=== PATIENT | female | born 2000 | race Caucasian/White ===

== ENCOUNTER 2022-09-16 17:44 | Observation (INO) | payer OTHER ==
[~2022-09-16] VITALS: Ht 165.1 cm; Wt 56.2 kg
[2022-09-16] MEDS ORDERED: bupropion HCl XL 300 (18:19)
[2022-09-16 18:58] LABS: Albumin, Blood 3.9 g/dL (3.4-5.0); Albumin/Globulin Ratio 1.3 (0.8-1.8); Bilirubin, Total 0.3 mg/dL (0.1-1.0); Bun/Creatinine Ratio 12.4 (12.0-20.0); Calcium, Blood 9.3 mg/dL (8.5-10.1); Creatinine, Blood 0.89 mg/dL (0.40-1.00); Globulin, Blood 3.1 g/dL (2.2-4.0); Potassium, Blood 4.3 mmol/L (3.5-5.5)
[2022-09-16 19:17] LABS: Source, Urine Clean Catch
[2022-09-16 19:20] LABS: Hematocrit 36.7 % (33.0-51.0); Hemoglobin 12.5 g/dL (11.5-16.0); Mean Corpuscular HGB Conc 34.1 g/dL (31.5-36.5); Mean Corpuscular Volume 88 fL (80-100); Mean Platelet Volume 10.1 fL (9.1-12.4); Platelet Count 370 K/mm3 (150-400); RDW Coefficient Variation 11.9 % (11.7-14.2); RDW Standard Deviation 38.6 fL (35.1-46.3); Red Blood Cell Count 4.16 M/mm3 (3.80-5.20); White Blood Cell Count 11.23 K/mm3 (4.00-11.30)
[2022-09-16 20:16] LABS: BASOPHILS ABSOLUTE MAN 0.22 K/mm3 (0.00-0.23); BASOPHILS PERCENT MAN 2 % (0-2); EOSINOPHILS ABSOLUTE MAN 4.26 K/mm3 (0.00-0.68); EOSINOPHILS PERCENT MAN 38 % (0-6); LYMPHOCYTES PERCENT MAN 17 % (21-46); MONOCYTES ABSOLUTE MAN 0.33 K/mm3 (0.16-1.47); MONOCYTES PERCENT MAN 3 % (4-13); NEUTROPHILS ABSOLUTE MAN 4.49 K/mm3 (1.96-9.15); SEG NEUTROPHILS PERCENT MAN 40 % (41-73); TOTAL CELLS COUNTED 100
[2022-09-16 20:20] LABS: Appearance, Urine Hazy (Clear); Bilirubin, Urine Neg (Neg); Blood, Urine Neg (Neg); Color, Urine Yellow (P-Yellow); Glucose Qualitative, Urine Neg (Neg); Ketones, Urine Neg (Neg); Leukocyte Esterase, Urine 3+ (Neg); Nitrite, Urine Pos (Neg); Protein, Urine Neg (Neg); Urobilinogen, Urine NORM (Normal)
[2022-09-16 20:30] LABS: Bacteria Many /hpf; Mucus Light (0-Heavy); Red Blood Cells, Urine 0-2 /hpf (0-2); Squamous Epithelial Cells Few /hpf (Few)
--- NOTE | 2022-09-17 09:20 | NUR ---
PT ARRIVED TO THE ROOM ACCOMPANIED BY JESSICA (FATHER) AT APPROXIMATELY 0920. AT TIME OF ARRIVAL PT WAS ALERT AND ORIENTED. SHE DENIED PAIN AND NAUSEA. PT A&OX4 AND INDEPENDENT.
[2022-09-17] MEDS ORDERED: Prozac40 MG PO (09:34)
[2022-09-17] MEDS ORDERED: Budeprion Xl300 MG PO (09:34)
--- NOTE | 2022-09-17 11:51 | NUR ---
09/17/22 1151 Eduardo Chaudhari SCHEDULED UNASYN STARTED IN PREOP AT 1109
[2022-09-17] MEDS ORDERED: HYDR1TAB94 PO (15:08)
--- NOTE | 2022-09-17 17:55 | NUR ---
LOW BLOOD PRESSURE PT'S BLOOD PRESSURE CONTINUES TO REMAIN LOW. ORTHOSTATIC VS COMPLETED. LYING 93/63 HR OF 69 SITTING 101/67 HR OF 96 STANDING 89/61 HR OF 97 PT REPORTED FEELING DIZZY UPON STANDING, SHE REPORTS SHE IS LESS DIZZY THAN EARLIER TODAY. DR. BECK NOTIFIED AND 1L BOLUS OF LR ORDERED. PLAN TO CONTINUE WITH DISCHARGE WHEN BP IMPROVES.
[2022-09-17] MEDS ORDERED: CEPH500 PO (18:09)
--- NOTE | 2022-09-17 18:35 | NUR ---
SHIFT SUMMARY PT IS POD#[address] BECK. PT IS TOLERATING PO, ABLE TO VOID, ABLE TO PASS FLATUS AND ABLE TO AMBULATE. WHEN PT HAS BEEN OOB SHE HAS REPORTED DIZZINESS AND HAS BEEN UNSTEADY ON HER FEET, ORTHOSTATIC BP LOW (SEE NOTE). FLUID BOLUS TO BE COMPLETED PRIOR TO DISCHARGE. PT AND HER FATHER WERE PROVIDED WITH WRITTEN AND VERBAL DISCHARGE INSTRUCTIONS; THEY REPORTED UNDERSTANDING. PLAN FOR DISCHARGE AFTER FLUID BOLUS IS COMPLETE. PT'S DAD OBTAINED PT'S PRESCRIPTIONS. WILL MONITOR UNTIL DISCHARGE OR REPORT TO NOC RN.
--- NOTE | 2022-09-17 19:35 | NUR ---
PT INDEP TO RESTROOM. LARGE VOID CLEAR YELLOW. BARRETT REG DIET FOR DINNER. REPORTS MILD SORENESS TO LAP SITES ON ABD X3 CDI. PT REQUESTING TO DISCHARGE HOME AND DECLINES TO FINISH FLUID BOLUS. VSS AND PT REPORTS NO DIZZYNESS WHEN OOB. IV DC'D. DISCHARGE INSTRUCTIONS COMPLETED BY DAY SHIFT RN. PT GETTING DRESSED AND GATHERING ALL PERSONAL BELONGINGS. PT FATHER AT BEDSIDE TO TAKE PT HOME.
== END 2022-09-17 19:43 | disposition home or self-care (01) ==
LOC: ER 17:44 → ERHOLD 17:45 → SURS 17:45
PROVIDERS: Student in an Organized Health Care Education/Training Program; ADMIT Surgery
PROC: 0DTJ4ZZ Resection of Appendix, Percutaneous Endoscopic Approach (ICD-10-PCS; principal; 2022-09-17 11:00)
DX: K35.80 Unspecified acute appendicitis (principal); N39.0 Urinary tract infection, site not specified
CPT/HCPCS: 36415; 74177; 80053; 81001; 81025; 83690; 85025; 87077; 87086; 87186; A9270; G0378; J0295; J1100; J1885; J2250; J2405; J2704; J2795; J3010; J7120; Q9967

== ENCOUNTER → 2023-03-15 | Outpatient (CLI) | payer OTHER ==
[~2023-03-15] MED LIST: Budeprion Xl300 MG PO; CEPH500 PO; HYDR1TAB94 PO; Prozac40 MG PO; bupropion HCl XL 300
[2023-03-15 16:55] LABS: BASOPHILS ABSOLUTE AUTO 0.07 K/mm3 (0.00-0.23); BASOPHILS PERCENT AUTO 1 % (0-2); EOSINOPHILS ABSOLUTE AUTO 0.56 K/mm3 (0.00-0.68); EOSINOPHILS PERCENT AUTO 7 % (0-6); IMMATURE GRAN ABSOLUTE AUTO 0.02 K/mm3 (0.00-0.10); IMMATURE GRAN PERCENT AUTO 0 % (0-1); LYMPHOCYTES ABSOLUTE AUTO 2.28 K/mm3 (0.84-5.20); LYMPHOCYTES PERCENT AUTO 29 % (21-46); MONOCYTES ABSOLUTE AUTO 0.76 K/mm3 (0.16-1.47); MONOCYTES PERCENT AUTO 10 % (4-13); Mean Corpuscular HGB 30.5 pg (26.0-34.0); Mean Corpuscular HGB Conc 34.3 g/dL (31.5-36.5); Mean Corpuscular Volume 89 fL (80-100); NEUTROPHILS ABSOLUTE AUTO 4.11 K/mm3 (1.96-9.15); NEUTROPHILS PERCENT AUTO 53 % (41-73); Platelet Count 433 K/mm3 (150-400); RDW Coefficient Variation 11.8 % (11.7-14.2); Red Blood Cell Count 3.94 M/mm3 (3.80-5.20)
[2023-03-15 17:47] LABS: Albumin, Blood 3.9 g/dL (3.4-5.0); Albumin/Globulin Ratio 1.3 (0.8-1.8); Bilirubin, Total 0.5 mg/dL (0.1-1.0); Bun/Creatinine Ratio 12.6 (12.0-20.0); Calcium, Blood 9.1 mg/dL (8.5-10.1); Creatinine, Blood 0.87 mg/dL (0.40-1.00); Globulin, Blood 3.1 g/dL (2.2-4.0); Potassium, Blood 3.9 mmol/L (3.5-5.5)
== END | disposition home or self-care (01) ==
LOC: LAB 15:32 → LAB SHORT 15:32
PROVIDERS: Family Medicine
DX: R58 Hemorrhage, not elsewhere classified (principal)
CPT/HCPCS: 80053; 85025

== ENCOUNTER 2024-06-29 15:57 | Emergency (ER) | payer OTHER ==
[2024-06-29 17:41] LABS: BASOPHILS ABSOLUTE AUTO 0.06 K/mm3 (0.00-0.23); BASOPHILS PERCENT AUTO 1 % (0-2); EOSINOPHILS ABSOLUTE AUTO 0.21 K/mm3 (0.00-0.68); EOSINOPHILS PERCENT AUTO 2 % (0-6); Hematocrit 38.9 % (33.0-51.0); Hemoglobin 13.3 g/dL (11.5-16.0); IMMATURE GRAN ABSOLUTE AUTO 0.08 K/mm3 (0.00-0.10); IMMATURE GRAN PERCENT AUTO 1 % (0-1); LYMPHOCYTES ABSOLUTE AUTO 2.12 K/mm3 (0.84-5.20); LYMPHOCYTES PERCENT AUTO 20 % (21-46); MONOCYTES ABSOLUTE AUTO 0.85 K/mm3 (0.16-1.47); MONOCYTES PERCENT AUTO 8 % (4-13); Mean Corpuscular HGB 29.4 pg (26.0-34.0); Mean Corpuscular HGB Conc 34.2 g/dL (31.5-36.5); Mean Corpuscular Volume 86 fL (80-100); Mean Platelet Volume 10.1 fL (9.1-12.4); NEUTROPHILS ABSOLUTE AUTO 7.35 K/mm3 (1.96-9.15); NEUTROPHILS PERCENT AUTO 69 % (41-73); Platelet Count 431 K/mm3 (150-400); RDW Coefficient Variation 11.6 % (11.7-14.2); RDW Standard Deviation 35.9 fL (35.1-46.3); Red Blood Cell Count 4.53 M/mm3 (3.80-5.20); White Blood Cell Count 10.67 K/mm3 (4.00-11.30)
[2024-06-29 18:01] LABS: Albumin/Globulin Ratio 1.1 (0.8-1.8); Bilirubin, Total 0.4 mg/dL (0.1-1.0); Bun/Creatinine Ratio 15.6 (12.0-20.0); Calcium, Blood 9.4 mg/dL (8.5-10.1); Creatinine, Blood 0.64 mg/dL (0.40-1.00); Globulin, Blood 3.7 g/dL (2.2-4.0); Total Protein, Blood 7.7 g/dL (6.4-8.2)
[2024-06-29 19:37] LABS: Source, Urine Clean Catch
[2024-06-29 19:42] LABS: Appearance, Urine Clear (Clear); Bilirubin, Urine Neg (Neg); Blood, Urine Neg (Neg); Glucose Qualitative, Urine Neg (Neg); Ketones, Urine Neg (Neg); Leukocyte Esterase, Urine 1+ (Neg); Nitrite, Urine Pos (Neg); Protein, Urine Neg (Neg); Specific Gravity, Urine 1.005 (1.003-1.022); Urobilinogen, Urine NORM (Normal)
[2024-06-29 19:46] LABS: Color, Urine Pale Yellow (P-Yellow)
[2024-06-29 19:49] LABS: Bacteria Many /hpf; Red Blood Cells, Urine 0-2 /hpf (0-2); Squamous Epithelial Cells Few /hpf (Few)
[2024-06-29] MEDS ORDERED: Nitrofurantoin/Nitrofuran Mac 100 MG Cap PO ONE (20:05)
[2024-06-29] MEDS ORDERED: NITR100CA PO (20:08)
[2024-06-29 20:17] VITALS: BP 101/74
== END 2024-06-29 20:25 | disposition home or self-care (01) ==
LOC: ER 15:57
PROVIDERS: Physician Assistant
DX: N83.202 Unspecified ovarian cyst, left side (principal); N39.0 Urinary tract infection, site not specified; Z79.899 Other long term (current) drug therapy; Z91.040 Latex allergy status; Z91.018 Allergy to other foods
CPT/HCPCS: 76856; 80053; 81001; 81025; 85025; 87077; 87086; 87186; 99284-25; A9270

== ENCOUNTER → 2024-08-15 | Outpatient (CLI) | payer OTHER ==
[~2024-08-15] MED LIST changes: +NITR100CA PO
== END ==
LOC: LAB SHORT 17:16 → LAB 17:16
DX: R82.90 Unspecified abnormal findings in urine (principal)
CPT/HCPCS: 87086

== ENCOUNTER 2024-10-30 10:08 | Day surgery (SDC) | payer OTHER ==
[2024-10-30] VITALS (10 sets, daily range): BP systolic 101–124; BP diastolic 54–80
[~2024-10-30] VITALS: Ht 165.1 cm; Wt 71.8 kg
[~2024-10-30 10:08] MED LIST changes: +ESGIC 50-325-41 EACH PO; +KELNOR 1-35 281 EACH PO; +TOPI100 PO
[2024-10-30] MEDS ORDERED: Lactated Ringer's 1,000 ML IV SCH (10:20)
[2024-10-30] MEDS ORDERED: CeFAZolin Sodium 2,000 MG in NS 100 ML IV SCH (10:20)
--- NOTE | 2024-10-30 10:25 | NUR ---
Ambulatory in Day Surgery Patient confirms NPO status and agrees with scheduled surgery. Pre-Op teaching done. Pt verbalizes understanding. History, Chart, Medications and Allergies reviewed before start of procedure. Patient reports completing Chlorhexadine shower X2 prior to admission to hospital.
[2024-10-30] MEDS ORDERED: KELNOR 1-35 281 EACH PO (10:42)
[2024-10-30] MEDS ORDERED: CeFAZolin Sodium 2,000 MG VIAL ONE (11:03)
[2024-10-30] MEDS ORDERED: Midazolam HCl 1MG / ML 2ML Vial ONE ×2 (11:27→13:42)
[2024-10-30] MEDS ORDERED: Midazolam HCl 1MG / ML 2ML Vial IV SCH (11:30)
[2024-10-30] MEDS ORDERED: Bupivacaine 0.5% HCl 5 MG/ML 30MLVIAL ONE (11:44)
[2024-10-30] MEDS ORDERED: FentaNYL Citrate 50 MCG/ML 2 ML Injection ONE ×3 (12:07→13:56)
[2024-10-30] MEDS ORDERED: propofoL 20 ML IV ONE (12:07)
[2024-10-30] MEDS ORDERED: Ketorolac Tromethamine 30mg Vial ONE (12:15)
[2024-10-30] MEDS ORDERED: Dexamethasone Sod Phos 10 MG/ML 1ML VIAL ONE (12:15)
[2024-10-30] MEDS ORDERED: Ondansetron HCl 2 MG / ML 2ML Vial ONE (12:15)
[2024-10-30] MEDS ORDERED: Phenylephrine HCl 100 MCG/ML-NS 10MLSYR (1MG/10ML) ONE (12:15)
[2024-10-30] MEDS ORDERED: Sugammadex Sodium 200 MG/2ML SDV (100 MG/ML) ONE (13:20)
[2024-10-30] MEDS ORDERED: OxyCODONE 5 mg/Acetamin 325 mg TABLET PO PRN (14:15)
--- NOTE | 2024-10-30 15:18 | NUR ---
Discharge instructions reviewed with patient. Patient verbalizes understanding. Copy given to patient to take home. Prescriptions already picked up. Up to bathroom to void. Moderate bleeding. Ice pack provided. Patient States Post-Procedure ride home has been arranged. Discharged via wheelchair to private car for ride home.
== END 2024-10-30 15:30 | disposition home or self-care (01) ==
LOC: ORSCMMR 10:08 → ORD 11:30 → ORSCMMR 11:30 → ORD 11:45 → ORSCMMR 15:30
PROVIDERS: Obstetrics & Gynecology
PROC: 0U5F4ZZ Destruction of Cul-de-sac, Percutaneous Endoscopic Approach (ICD-10-PCS; principal; 2024-10-30 11:30)
DX: R10.2 Pelvic and perineal pain (principal); N94.6 Dysmenorrhea, unspecified; N83.202 Unspecified ovarian cyst, left side; N80.329 Endometriosis of the posterior cul-de-sac, unspecified depth; Z79.899 Other long term (current) drug therapy
CPT/HCPCS: 88305; A9270; J0690; J1100; J1885; J2250; J2371; J2405; J2704; J3010; J7120